=== PATIENT | male | born 1950 | race Caucasian/White ===

== ENCOUNTER 2016-10-21 17:57 | Inpatient (IN) | payer MEDICARE ==
[~2016-10-21] VITALS: Ht 188 cm; Wt 97.0 kg
[2016-10-21] MEDS ORDERED: CEFTRIAXONE 1 GM VIAL ONE (19:14)
[2016-10-21] MEDS ORDERED: SODIUM CHLORIDE 0.9% 100 ML IV ONE (19:15)
[2016-10-21] MEDS ORDERED: SODIUM CHLORIDE 0.9% 1,000 ML ONE (19:15)
[2016-10-21] MEDS ORDERED: AZITHROMYCIN 500 MG VIAL IV ONE (19:57)
[2016-10-21] MEDS ORDERED: SODIUM CHLORIDE 0.9% 250 ML IV ONE (19:58)
[2016-10-21] MEDS ORDERED: BISACODYL 10 MG SUPP RECTAL PRN (21:20)
[2016-10-21] MEDS ORDERED: BISACODYL EC 5 MG TAB PO PRN (21:20)
[2016-10-21] MEDS ORDERED: SODIUM CHLORIDE 0.9% 1,000 ML IV SCH (21:20)
[2016-10-21] MEDS ORDERED: MAG HYDROX 30 ML UDC PO PRN (21:20)
[2016-10-21] MEDS ORDERED: SALINE FLUSH 10 ML FLUSH PRN (21:20)
[2016-10-21] MEDS ORDERED: ACETAMINOPHEN 325 MG TAB PO PRN (21:20)
[2016-10-21] MEDS ORDERED: ALBUMIN HUMAN 25GM (25%) 100 ML IV ONE (21:30)
[2016-10-21] MEDS ORDERED: PHARMACY TO DOSE VANCOMYCIN IV SCH (22:00)
[2016-10-21] MEDS ORDERED: CALC CARB 500 MG CHEWTAB PO PRN (22:05)
[2016-10-21] MEDS ORDERED: **NOTE TO NURSE XX SCH (22:30)
[2016-10-21] MEDS ORDERED: VANCOMYCIN 2,000 MG in SODIUM CHLORIDE 0.9% 500 ML IV ONE (22:55)
[2016-10-21 23:26] VITALS: RESP 22
[2016-10-21] MEDS: NEB-ALBUTEROL 2.5 MG/3 ML INH SCH (23:26)
[2016-10-22] VITALS (8 sets, daily range): BP systolic 92–124; RESP 16–24; TEMP 97.6–99.2; Ht 188 cm; Wt 97.0 kg
[2016-10-22] MEDS: SODIUM CHLORIDE 0.9% FLUSH BAG 500 ML IV SCH (06:00)
[2016-10-22] MEDS: NEB-ALBUTEROL 2.5 MG/3 ML INH SCH ×2 (06:23→11:58)
[2016-10-22] MEDS ORDERED: ENOXAPARIN 40 MG/0.4 ML SYR SUBQ SCH (09:00)
[2016-10-22] MEDS: APIXABAN 5 MG TAB PO SCH ×2 (09:26→21:20)
[2016-10-22] MEDS: SALINE FLUSH 10 ML FLUSH SCH ×2 (09:26→21:19)
[2016-10-22] MEDS: ASPIRIN EC 81 MG TAB PO SCH (09:26)
[2016-10-22] MEDS: FAMOTIDINE 20 MG INJ IV SCH ×2 (09:26→21:19)
[2016-10-22] MEDS ORDERED: VANCOMYCIN 1,250 MG in SODIUM CHLORIDE 0.9% 250 ML IV SCH (12:00)
[2016-10-22] MEDS: VANCOMYCIN 1,750 MG in SODIUM CHLORIDE 0.9% 500 ML IV SCH (12:56)
[2016-10-22] MEDS: lamoTRIgine 100 MG TAB PO SCH (14:37)
[2016-10-22] MEDS ORDERED: MORPHINE 2 MG/ML SYR IV PRN (14:40)
[2016-10-22] MEDS: DUONEB INH SCH ×3 (15:00→22:22)
[2016-10-22] MEDS ORDERED: MISSING DOSE XX ONE (15:10)
[2016-10-22] MEDS: GUAIFENESIN ER 600 MG TABCR PO SCH ×2 (15:11→21:20)
[2016-10-22] MEDS ORDERED: COD PO PRN (16:20)
[2016-10-22] MEDS ORDERED: GUAIFEN PO PRN (16:20)
[2016-10-22] MEDS: BACLOFEN 10 MG TAB PO SCH ×2 (16:47→21:20)
[2016-10-22] MEDS: GABAPENTIN 300 MG CAP PO SCH ×2 (16:47→21:20)
[2016-10-22] MEDS ORDERED: NEB-NACL 3% 4 ML NEBU INH SCH (18:30)
[2016-10-22] MEDS: NEB-BUDESONIDE 0.5 MG INH SCH (19:31)
[2016-10-22] MEDS: NEB-BROVANA 15 MCG/2 ML INH SCH (19:31)
[2016-10-22] MEDS: NEB-NACL 3% 4 ML NEBU INH SCH ×2 (19:31→22:25)
[2016-10-22] MEDS ORDERED: QUEtiapine 100 MG TAB PO SCH (21:00)
[2016-10-22] MEDS: ALU/MAG/SIM 30 ML UDC PO PRN (21:18)
[2016-10-22] MEDS: TAMSULOSIN 0.4 MG CAP PO SCH (21:19)
[2016-10-22] MEDS: PRIMIDONE 50 MG TAB PO SCH (21:20)
[2016-10-22] MEDS: MIRTAZAPINE 15 MG TAB PO SCH (21:20)
[2016-10-22] MEDS: Atorvastatin 20 MG TAB PO SCH (21:20)
[2016-10-23] VITALS (10 sets, daily range): BP systolic 86–121; RESP 16–18; TEMP 97.2–98.9
[2016-10-23] MEDS: VANCOMYCIN 1,750 MG in SODIUM CHLORIDE 0.9% 500 ML IV SCH ×2 (02:18→14:30)
[2016-10-23] MEDS: SODIUM CHLORIDE 0.9% FLUSH BAG 500 ML IV SCH (06:00)
[2016-10-23] MEDS: DUONEB INH SCH ×5 (06:13→23:00)
[2016-10-23] MEDS: NEB-NACL 3% 4 ML NEBU INH SCH ×5 (06:13→23:59)
[2016-10-23] MEDS: NEB-BUDESONIDE 0.5 MG INH SCH ×2 (06:13→19:43)
[2016-10-23] MEDS: NEB-BROVANA 15 MCG/2 ML INH SCH ×2 (06:13→19:43)
[2016-10-23] MEDS ORDERED: MISSING DOSE XX ONE ×3 (08:55→20:20)
[2016-10-23] MEDS: FAMOTIDINE 20 MG INJ IV SCH ×2 (09:02→21:19)
[2016-10-23] MEDS: GABAPENTIN 300 MG CAP PO SCH (09:03)
[2016-10-23] MEDS: BACLOFEN 10 MG TAB PO SCH ×3 (09:03→21:18)
[2016-10-23] MEDS: APIXABAN 5 MG TAB PO SCH ×2 (09:03→21:18)
[2016-10-23] MEDS: ASPIRIN EC 81 MG TAB PO SCH (09:03)
[2016-10-23] MEDS: SALINE FLUSH 10 ML FLUSH SCH ×2 (09:03→20:00)
[2016-10-23] MEDS: GUAIFENESIN ER 600 MG TABCR PO SCH ×2 (09:04→21:18)
[2016-10-23] MEDS: lamoTRIgine 100 MG TAB PO SCH (09:45)
[2016-10-23] MEDS ORDERED: SODIUM CHLORIDE 0.9% 1,000 ML IV ONE (15:10)
[2016-10-23] MEDS: GABAPENTIN 100 MG CAP PO SCH ×2 (15:46→21:18)
[2016-10-23] MEDS: OXYCODONE 5 MG TAB PO PRN (16:47)
[2016-10-23] MEDS: QUEtiapine 25 MG TAB PO SCH (21:18)
[2016-10-23] MEDS: Atorvastatin 20 MG TAB PO SCH (21:18)
[2016-10-23] MEDS: PRIMIDONE 50 MG TAB PO SCH (21:19)
[2016-10-23] MEDS: MIRTAZAPINE 15 MG TAB PO SCH (21:19)
[2016-10-23] MEDS: TAMSULOSIN 0.4 MG CAP PO SCH (21:19)
[2016-10-23] MEDS: VANCOMYCIN 1,250 MG in SODIUM CHLORIDE 0.9% 250 ML IV SCH (21:26)
[2016-10-23] MEDS: ALU/MAG/SIM 30 ML UDC PO PRN (21:26)
[2016-10-24] VITALS (8 sets, daily range): BP systolic 103–134; RESP 16–20; TEMP 98–98.7
[2016-10-24] MEDS: SODIUM CHLORIDE 0.9% FLUSH BAG 500 ML IV SCH (06:00)
[2016-10-24] MEDS: VANCOMYCIN 1,250 MG in SODIUM CHLORIDE 0.9% 250 ML IV SCH (06:34)
[2016-10-24] MEDS: DUONEB INH SCH ×5 (07:49→23:00)
[2016-10-24] MEDS: NEB-BUDESONIDE 0.5 MG INH SCH ×2 (07:49→19:14)
[2016-10-24] MEDS: NEB-BROVANA 15 MCG/2 ML INH SCH ×2 (07:49→19:14)
[2016-10-24] MEDS: NEB-NACL 3% 4 ML NEBU INH SCH ×4 (07:49→23:10)
[2016-10-24] MEDS ORDERED: MISSING DOSE XX ONE (08:15)
[2016-10-24] MEDS: BACLOFEN 10 MG TAB PO SCH ×3 (08:16→20:26)
[2016-10-24] MEDS: OXYCODONE 5 MG TAB PO PRN ×3 (08:16→22:01)
[2016-10-24] MEDS: GUAIFENESIN ER 600 MG TABCR PO SCH ×2 (08:17→20:26)
[2016-10-24] MEDS: FAMOTIDINE 20 MG INJ IV SCH (08:17)
[2016-10-24] MEDS: SALINE FLUSH 10 ML FLUSH SCH ×2 (08:17→20:00)
[2016-10-24] MEDS: ASPIRIN EC 81 MG TAB PO SCH (08:17)
[2016-10-24] MEDS: GABAPENTIN 100 MG CAP PO SCH ×4 (08:17→20:26)
[2016-10-24] MEDS: APIXABAN 5 MG TAB PO SCH ×2 (08:17→20:26)
[2016-10-24] MEDS: lamoTRIgine 100 MG TAB PO SCH (08:55)
[2016-10-24] MEDS: MIRTAZAPINE 15 MG TAB PO SCH (20:25)
[2016-10-24] MEDS: PANTOPRAZOLE 40 MG TAB PO SCH (20:25)
[2016-10-24] MEDS: Atorvastatin 20 MG TAB PO SCH (20:26)
[2016-10-24] MEDS: QUEtiapine 25 MG TAB PO SCH (20:26)
[2016-10-24] MEDS: PRIMIDONE 50 MG TAB PO SCH (20:26)
[2016-10-24] MEDS: TAMSULOSIN 0.4 MG CAP PO SCH (20:26)
[2016-10-25 04:09] VITALS: BP_SYST 120; RESP 20; TEMP 98.2
[2016-10-25] MEDS: PANTOPRAZOLE 40 MG TAB PO SCH (05:52)
[2016-10-25] MEDS: SODIUM CHLORIDE 0.9% FLUSH BAG 500 ML IV SCH (05:53)
[2016-10-25] MEDS: OXYCODONE 5 MG TAB PO PRN (05:56)
[2016-10-25] MEDS: NEB-BROVANA 15 MCG/2 ML INH SCH (07:05)
[2016-10-25] MEDS: DUONEB INH SCH ×2 (07:05→10:44)
[2016-10-25] MEDS: NEB-BUDESONIDE 0.5 MG INH SCH (07:05)
[2016-10-25] MEDS: NEB-NACL 3% 4 ML NEBU INH SCH ×2 (07:05→10:44)
[2016-10-25 07:45] VITALS: BP_SYST 126; RESP 20; TEMP 98.5
[2016-10-25] MEDS: ASPIRIN EC 81 MG TAB PO SCH (08:16)
[2016-10-25] MEDS: APIXABAN 5 MG TAB PO SCH (08:16)
[2016-10-25] MEDS: SALINE FLUSH 10 ML FLUSH SCH (08:16)
[2016-10-25] MEDS: BACLOFEN 10 MG TAB PO SCH (08:17)
[2016-10-25] MEDS: lamoTRIgine 100 MG TAB PO SCH (08:17)
[2016-10-25] MEDS: GABAPENTIN 100 MG CAP PO SCH (08:17)
[2016-10-25] MEDS: GUAIFENESIN ER 600 MG TABCR PO SCH (08:17)
[2016-10-25 11:09] VITALS: BP_SYST 126; RESP 20; TEMP 98.5
[2016-10-25 11:21] VITALS: BP_SYST 120; BP_SYST 126; BP_SYST 127
[2016-10-25 11:23] VITALS: BP_SYST 127; RESP 20; TEMP 97.6
[2016-10-25 11:24] VITALS: BP_SYST 127; RESP 20; TEMP 97.6
== END 2016-10-25 12:18 | disposition home or self-care (01) | DRG 871 ==
LOC: ENRESERVTM → ENRESERVDT → ER 17:57 → EMR 21:16 → ENPENDDIS 21:16 → PCU2 23:15 → 3NT 10-23 12:25
PROVIDERS: ADMIT Family Medicine; ATTEND Family Medicine
DX: A41.9 Sepsis, unspecified organism (principal); J18.9 Pneumonia, unspecified organism; N17.9 Acute kidney failure, unspecified; I13.0 Hypertensive heart and chronic kidney disease with heart failure and stage 1 through stage 4 chronic kidney disease, or unspecified chronic kidney disease; I50.9 Heart failure, unspecified; M48.54XA Collapsed vertebra, not elsewhere classified, thoracic region, initial encounter for fracture; J44.0 Chronic obstructive pulmonary disease with (acute) lower respiratory infection; N18.9 Chronic kidney disease, unspecified; I25.10 Atherosclerotic heart disease of native coronary artery without angina pectoris; Z95.1 Presence of aortocoronary bypass graft; K21.9 Gastro-esophageal reflux disease without esophagitis; K59.00 Constipation, unspecified; E03.9 Hypothyroidism, unspecified; F31.9 Bipolar disorder, unspecified; E86.9 Volume depletion, unspecified; Z86.711 Personal history of pulmonary embolism; Z79.01 Long term (current) use of anticoagulants; Z79.82 Long term (current) use of aspirin; Z87.891 Personal history of nicotine dependence
CPT/HCPCS: 36415; 71010; 71250; 76770; 80048; 80053; 80202; 82533; 82553; 83605; 83880; 84439; 84443; 84484; 85025; 85610; 85730; 87040; 87071; 93005; 93306; 94640; 94799; 96361; 96365; 99223; 99232; 99233; 99239